=== PATIENT | female | born 1990 | race Asian ===

== ENCOUNTER → 2018-03-30 | Outpatient (CLI) | payer OTHER | LOC: M RAD 10:39 | DX: N63.32 Unspecified lump in axillary tail of the left breast (principal); M25.512 Pain in left shoulder | CPT/HCPCS: 77065 ==

== ENCOUNTER → 2019-07-20 | Outpatient (CLI) | payer OTHER ==
--- NOTE | 2019-07-20 16:16 | REP ---
Digital diagnostic unilateral left breast mammography with CAD and focused left breast sonography: History: Lump in the left breast. Upper inner quadrant. Present for the last 3 weeks. Comparison left breast mammographic image is from March 30, 2018. Findings: Left breast parenchyma is diffusely extremely dense mammographically. This may inhibit the sensitivity of mammography. Skin marker is affixed to the skin at the site of the palpable lump which projects in the superior medial quadrant. No mammographic abnormality is observed. Sonographic findings: Focused left breast sonography is performed near the palpable lump at approximately 11 o'clock. Heterogeneous fibroglandular background echotexture is visible sonographically. No sonographically suspicious finding. Impression: BIRADS category 1 negative findings. Clinical follow-up is advised. BIRADS 1: BI-RADS/ACR category 1 mammogram. Negative Mammogram. This mammogram was interpreted with the aid of an FDA-approved computer-aided detection system. The patient states she had a clinical breast exam in July 2019. The patient letter being requested is m#2 dense . This patient's estimated Tyrer-Cuzick lifetime risk assessment for the breast cancer is 11.7 %.
== END ==
LOC: M WHC 13:04
PROVIDERS: ATTEND Internal Medicine
DX: N63.22 Unspecified lump in the left breast, upper inner quadrant (principal)